=== PATIENT | female | born 1955 | race Caucasian/White ===

== ENCOUNTER 2019-11-29 18:41 | Emergency (ER) | payer MEDICAID, MEDICARE, OTHER, SELFPAY ==
[~2019-11-29] VITALS: Ht 167.6 cm; Wt 63.6 kg
[~2019-11-29 18:41] MED LIST: LEVO125T8 PO; METR-159 PO; OXYC15TA PO; OXYC30TA PO; POLY17PO10 PO; TETR-58 PO; VALA-7 PO
[2019-11-29 18:55] VITALS: BP 153/85
== END 2019-11-29 19:41 | disposition home or self-care (01) ==
LOC: ER 18:42
DX: J06.9 Acute upper respiratory infection, unspecified (principal); Z20.828 Contact with and (suspected) exposure to other viral communicable diseases; G89.29 Other chronic pain; Z86.14 Personal history of Methicillin resistant Staphylococcus aureus infection; Z98.890 Other specified postprocedural states; Z88.8 Allergy status to other drugs, medicaments and biological substances; Z79.2 Long term (current) use of antibiotics; Z79.899 Other long term (current) drug therapy
CPT/HCPCS: 36415; 71045; 87635; 99283

== ENCOUNTER 2023-01-22 12:46 | Outpatient (CLI) | payer MEDICARE, MEDICAID ==
[~2023-01-22 12:46] MED LIST changes: +ATOR40TA72 PO; +FAMO40TA7 PO; +FURO40TA4 PO; +HYDR25TA4 PO; +IRON; -LEVO125T8 PO; +LEVO175T7 PO; -METR-159 PO; -OXYC15TA PO; -OXYC30TA PO; +PANT40TA54 PO; -POLY17PO10 PO; +POTA-366 PO; -TETR-58 PO; -VALA-7 PO
== END 2023-01-22 23:59 | disposition home or self-care (01) ==
LOC: RAD 12:46
PROVIDERS: ATTEND Surgery
DX: K44.9 Diaphragmatic hernia without obstruction or gangrene (principal)
CPT/HCPCS: 74220

== ENCOUNTER 2023-11-11 11:43 | Outpatient (CLI) | payer MEDICARE, MEDICAID ==
[~2023-11-11 11:43] MED LIST changes: +ALBU18HF2 INH; -FAMO40TA7 PO; +HYDR-3972 PO; -HYDR25TA4 PO; +HYDR25TA5 PO; -IRON
== END 2023-11-11 23:59 | disposition home or self-care (01) ==
LOC: MRI 11:43
PROVIDERS: ATTEND Anesthesiology Pain Medicine
DX: M51.24 Other intervertebral disc displacement, thoracic region (principal); M43.8X6 Other specified deforming dorsopathies, lumbar region; M40.294 Other kyphosis, thoracic region; M47.816 Spondylosis without myelopathy or radiculopathy, lumbar region; M48.061 Spinal stenosis, lumbar region without neurogenic claudication; G95.20 Unspecified cord compression; M75.42 Impingement syndrome of left shoulder; M45.9 Ankylosing spondylitis of unspecified sites in spine; G89.4 Chronic pain syndrome; M46.96 Unspecified inflammatory spondylopathy, lumbar region; S92.812S Other fracture of left foot, sequela; X58.XXXS Exposure to other specified factors, sequela; M54.2 Cervicalgia
CPT/HCPCS: 72141; 72146; 72148

== ENCOUNTER 2024-04-17 11:24 | Inpatient (IN) | payer MEDICARE, OTHER ==
[~2024-04-17] VITALS: Ht 170.2 cm; Wt 70.4 kg
[2024-04-17] MEDS: azithromycin 250mg tablet PO ONE (12:52)
[2024-04-17] MEDS: CefTRIAXone/D5W-Rocephin 1gm 50 ML IV ONE (12:52)
[2024-04-17 12:57] LABS: BASOPHILS % (AUTO) 0.2 % (0-1); EOSINOPHILS # (AUTO) 0.7 X10'3 (0-0.9); EOSINOPHILS % (AUTO) 5.3 % (0-6); HEMATOCRIT 38.6 % (35.0-45.0); HEMOGLOBIN 12.3 g/dl (12.0-16.0); LYMPHOCYTES # (AUTO) 1.1 X10'3 (1.1-4.8); MEAN CORPUSCULAR HEMOGLOBIN 27.1 PG (27.0-31.0); MEAN CORPUSCULAR HGB CONC 31.9 g/dL (33.0-36.5); MEAN PLATELET VOLUME 8.3 FL (7.4-10.4); MONOCYTES # (AUTO) 1.1 X10'3 (0-0.9); NEUTROPHILS # (AUTO) 9.7 X10'3 (1.8-7.7); NEUTROPHILS % (AUTO) 76.5 % (42-75); PLATELET COUNT 376 X10'3 (140-440); RED BLOOD COUNT 4.55 X10'6 (4.20-5.60); RED CELL DISTRIBUTION WIDTH 15.6 % (11.5-14.5); WHITE BLOOD COUNT 12.7 X10'3 (4.5-11.0)
[2024-04-17 13:48] LABS: ALBUMIN 2.5 G/DL (3.4-5.0); ANION GAP 8 (8-16); BLOOD UREA NITROGEN 11 MG/DL (7-18); CALCIUM 8.5 MG/DL (8.5-10.1); CHLORIDE 102 MMOL/L (99-107); CREATININE 0.58 MG/DL (0.40-0.90); GLUCOSE 102 MG/DL (70-104); POTASSIUM 3.3 MMOL/L (3.5-5.1); SODIUM 137 MMOL/L (135-145); eCRCL 92 ML/MIN; eGFR > 90 ML/MIN
[2024-04-17] MEDS: normal saline 1000ml 1,000 ML IV ONE (14:19)
[2024-04-17] MEDS ORDERED: ondansetron/PF 4mg/2ml inj IV PRN (14:45)
[2024-04-17] MEDS ORDERED: mag hydrox/Alum hydrox/simeth 30ml oral suspension PO PRN (14:45)
[2024-04-17] MEDS ORDERED: acetaminophen 325mg tablet PO PRN (14:45)
[2024-04-17] MEDS ORDERED: potassium Cl 40MEQ/1/2NS 520ml 520 ML IV PRN (14:45)
[2024-04-17] MEDS ORDERED: magnesium Cl slow-release 64mg tablet PO PRN (14:45)
[2024-04-17] MEDS ORDERED: magnesium sulf-water 2g/50mL 50 ML IV PRN (14:45)
[2024-04-17] MEDS ORDERED: magnesium hydroxide 30ml (MOM) UD suspension PO PRN (14:45)
[2024-04-17] MEDS ORDERED: docusate sod 100mg capsule PO PRN (14:45)
[2024-04-17] MEDS ORDERED: magnesium sulf-water 4G/100mL 100 ML IV PRN (14:45)
[2024-04-17] MEDS ORDERED: potassium Cl 20 mEq SR tablet PO PRN (14:45)
[2024-04-17 15:42] LABS: BILIRUBIN,URINE SMALL (Neg); CLARITY,URINE SLIGHTLY CLOUDY (Clear); COLOR,URINE YELLOW (Yellow); GLUCOSE, URINE NEGATIVE (Neg); KETONES,URINE NEGATIVE (Neg); LEUKOCYTE ESTERASE ,URINE TRACE (Neg); NITRITES, URINE NEGATIVE (Neg); OCCULT BLOOD,URINE TRACE-INTACT (Neg); PROTEIN,URINE 30 mg/dl (Neg)
[2024-04-17 15:47] LABS: UA COLLECTION TYPE VOIDED
[2024-04-17 15:48] LABS: MUCUS STRANDS FEW /LPF (Neg); SQUAMOUS EPITHELIAL CELL,UR MODERATE /LPF (FEW)
[2024-04-17 15:49] LABS: AMORPHOUS URATES 1+; BACTERIA,URINE 1+ /HPF (Neg)
[2024-04-17] MEDS: normal saline 1000ml 1,000 ML IV SCH (17:00)
[2024-04-17 17:38] VITALS: BP 139/75; PULSE 75; RESP 16; TEMP 98.2; O2SAT 98
[2024-04-17 17:42] LABS: PRO BRAIN NATRIURETIC PEPTIDE 177 PG/ML (0-125)
[2024-04-17] MEDS: potassium Cl 20 mEq SR tablet PO PRN (18:05)
[2024-04-17] MEDS: K and/or MAG REPLACEMENT MC SCH (18:05)
[2024-04-17] MEDS: morphine 2 MG/ML inj. syringe IV PRN (18:06)
[2024-04-17] MEDS ORDERED: iohexol 300mg/ml 100ml inj. ONE (18:45)
[2024-04-17 20:10] VITALS: RESP 18
[2024-04-17] MEDS: predniSONE 20 mg tablet PO SCH (20:16)
[2024-04-17] MEDS: HYDROchlorothiazide 25mg tablet PO SCH (20:16)
[2024-04-17] MEDS: atorvastatin 20mg tablet PO SCH (20:16)
[2024-04-17 21:30] VITALS: PULSE 72; RESP 16; O2SAT 93
[2024-04-17 22:00] VITALS: BP 124/64; PULSE 72; RESP 13; TEMP 98.1; O2SAT 93
[2024-04-18] VITALS (10 sets, daily range): BP systolic 112–135; BP diastolic 56–70; PULSE 61–83; RESP 14–20; TEMP 96.4–98.1; O2SAT 90–96
[2024-04-18 06:04] LABS: BASOPHILS % (AUTO) 0.2 % (0-1); EOSINOPHILS % (AUTO) 0.3 % (0-6); HEMATOCRIT 38.8 % (35.0-45.0); HEMOGLOBIN 12.2 g/dl (12.0-16.0); LYMPHOCYTES # (AUTO) 0.8 X10'3 (1.1-4.8); LYMPHOCYTES % (AUTO) 8.3 % (21-51); MEAN CORPUSCULAR HEMOGLOBIN 26.6 PG (27.0-31.0); MEAN CORPUSCULAR HGB CONC 31.4 g/dL (33.0-36.5); MEAN CORPUSCULAR VOLUME 84.9 FL (78-98); MEAN PLATELET VOLUME 7.8 FL (7.4-10.4); MONOCYTES # (AUTO) 0.3 X10'3 (0-0.9); MONOCYTES % (AUTO) 2.9 % (2-12); NEUTROPHILS # (AUTO) 8.4 X10'3 (1.8-7.7); NEUTROPHILS % (AUTO) 88.3 % (42-75); PLATELET COUNT 362 X10'3 (140-440); RED BLOOD COUNT 4.56 X10'6 (4.20-5.60); RED CELL DISTRIBUTION WIDTH 15.7 % (11.5-14.5); WHITE BLOOD COUNT 9.5 X10'3 (4.5-11.0)
[2024-04-18 06:32] LABS: ALANINE AMINOTRANSFERASE 77 U/L (12-78); ALBUMIN 2.5 G/DL (3.4-5.0); ALBUMIN/GLOBULIN RATIO 0.6 (1.1-1.5); ALKALINE PHOSPHATASE 172 IU/L (46-116); ANION GAP 8 (8-16); ASPARTATE AMINO TRANSFERASE 41 U/L (10-37); BILIRUBIN,TOTAL 0.3 MG/DL (0.1-1.0); BLOOD UREA NITROGEN 7 MG/DL (7-18); BUN/CREATININE RATIO 10.9 (10.0-20.0); CALCIUM 8.8 MG/DL (8.5-10.1); CHLORIDE 103 MMOL/L (99-107); CHOL/HDL RATIO 3.4 (0.00-4.99); CHOLESTEROL 196 MG/DL (0-200); CREATININE 0.64 MG/DL (0.40-0.90); GLUCOSE 134 MG/DL (70-104); HDL CHOLESTEROL 57 MG/DL (35-60); LDL CHOLESTEROL 105 MG/DL (50-100); POTASSIUM 4.1 MMOL/L (3.5-5.1); SODIUM 140 MMOL/L (135-145); THYROID STIMULATING HORMONE 0.18 ulU/ml (0.34-4.50); TOTAL CARBON DIOXIDE 28.6 MMOL/L (24-32); TOTAL PROTEIN 6.6 G/DL (6.4-8.2); TRIGLYCERIDES 69 MG/DL (20-135); eCRCL 83 ML/MIN; eGFR > 90 ML/MIN
[2024-04-18] MEDS: azithromycin/NS 500mg/250ml 250 ML IV SCH (07:36)
[2024-04-18] MEDS: pantoprazole 40mg Tablet.DR PO SCH (07:36)
[2024-04-18] MEDS: CefTRIAXone/D5W-Rocephin 1gm 50 ML IV SCH (07:36)
[2024-04-18] MEDS: levoTHYROXINE 175mcg tablet PO SCH (07:37)
[2024-04-18] MEDS: enoxaparin 40mg/0.4ml syringe SUBCUT SCH (07:37)
[2024-04-18] MEDS: guaiFENesin ER 600mg tablet PO SCH (08:00)
[2024-04-18] MEDS: ipratropium/albuterol 3ml nebule NEB PRN (10:24)
[2024-04-18] MEDS ORDERED: glucagon, human recombinant 1mg kit SUBCUT PRN (12:40)
[2024-04-18] MEDS ORDERED: dextrose 50%-water 50ml dispensing syringe IV PRN ×2 (12:40)
[2024-04-18] MEDS: morphine 2 MG/ML inj. syringe IV PRN (12:40)
[2024-04-18] MEDS ORDERED: DEXTROSE 15 GM of carb/4 tabs (each vial/BOTTLE has 4 tablets) PO PRN (12:40)
[2024-04-18] MEDS: ipratropium/albuterol 3ml nebule NEB SCH (14:53)
[2024-04-18] MEDS: vancomycin/NS 1 GM ADD-VANTAGE 250 ML IV SCH (16:50)
[2024-04-18] MEDS: piperacillin/tazo 3.375gm/50ml 50 ML IV SCH (17:10)
[2024-04-18] MEDS: INSULIN LISPRO 100 UNIT/ML INSULN.PEN MULTI-DOSE SQ SCH (19:23)
[2024-04-19] VITALS (9 sets, daily range): BP systolic 125–141; BP diastolic 65–72; PULSE 59–84; RESP 14–20; TEMP 97.5–98; O2SAT 92–99
[2024-04-19 04:40] LABS: BASOPHILS % (AUTO) 0.3 % (0-1); EOSINOPHILS # (AUTO) 0.5 X10'3 (0-0.9); EOSINOPHILS % (AUTO) 3.8 % (0-6); HEMATOCRIT 33.4 % (35.0-45.0); HEMOGLOBIN 10.6 g/dl (12.0-16.0); LYMPHOCYTES % (AUTO) 15.4 % (21-51); MEAN CORPUSCULAR HEMOGLOBIN 26.6 PG (27.0-31.0); MEAN CORPUSCULAR HGB CONC 31.8 g/dL (33.0-36.5); MEAN CORPUSCULAR VOLUME 83.7 FL (78-98); MEAN PLATELET VOLUME 7.2 FL (7.4-10.4); MONOCYTES % (AUTO) 7.9 % (2-12); NEUTROPHILS # (AUTO) 9.5 X10'3 (1.8-7.7); NEUTROPHILS % (AUTO) 72.6 % (42-75); PLATELET COUNT 396 X10'3 (140-440); RED BLOOD COUNT 3.99 X10'6 (4.20-5.60); RED CELL DISTRIBUTION WIDTH 15.2 % (11.5-14.5); WHITE BLOOD COUNT 13.1 X10'3 (4.5-11.0)
[2024-04-19 04:52] LABS: ALANINE AMINOTRANSFERASE 57 U/L (12-78); ALBUMIN 2.2 G/DL (3.4-5.0); ALBUMIN/GLOBULIN RATIO 0.5 (1.1-1.5); ALKALINE PHOSPHATASE 133 IU/L (46-116); ANION GAP 6 (8-16); ASPARTATE AMINO TRANSFERASE 20 U/L (10-37); BILIRUBIN,TOTAL 0.2 MG/DL (0.1-1.0); BLOOD UREA NITROGEN 9 MG/DL (7-18); BUN/CREATININE RATIO 14.1 (10.0-20.0); CALCIUM 8.9 MG/DL (8.5-10.1); CHLORIDE 104 MMOL/L (99-107); CREATININE 0.64 MG/DL (0.40-0.90); GLUCOSE 93 MG/DL (70-104); POTASSIUM 3.2 MMOL/L (3.5-5.1); SODIUM 143 MMOL/L (135-145); TOTAL CARBON DIOXIDE 32.7 MMOL/L (24-32); TOTAL PROTEIN 6.5 G/DL (6.4-8.2); eCRCL 83 ML/MIN; eGFR > 90 ML/MIN
[2024-04-19] MEDS: levoTHYROXINE 125mcg tablet PO SCH (07:39)
[2024-04-19] MEDS: furosemide 40mg tablet PO SCH (08:00)
[2024-04-19] MEDS: acetaminophen 325mg tablet PO PRN (08:17)
[2024-04-19] MEDS: CefTRIAXone/D5W-Rocephin 1gm 50 ML IV SCH (11:56)
[2024-04-19] MEDS: azithromycin/NS 500mg/250ml 250 ML IV ONE (11:56)
[2024-04-19] MEDS: guaiFENesin 200mg/20mg codeine phos 10ml UD oral syrup PO PRN (17:10)
[2024-04-19] MEDS: lactose-reduced food (Ensure Enlive) - 237ml bottle PO SCH (19:08)
[2024-04-20] MEDS ORDERED: VANCOMYCIN LEVEL IV ONE (04:30)
[2024-04-20 04:51] LABS: BASOPHILS # (AUTO) 0.1 X10'3 (0-0.2); BASOPHILS % (AUTO) 0.5 % (0-1); EOSINOPHILS # (AUTO) 0.6 X10'3 (0-0.9); EOSINOPHILS % (AUTO) 5.5 % (0-6); HEMATOCRIT 37.5 % (35.0-45.0); HEMOGLOBIN 11.9 g/dl (12.0-16.0); LYMPHOCYTES # (AUTO) 2.2 X10'3 (1.1-4.8); LYMPHOCYTES % (AUTO) 19.4 % (21-51); MEAN CORPUSCULAR HEMOGLOBIN 26.5 PG (27.0-31.0); MEAN CORPUSCULAR HGB CONC 31.7 g/dL (33.0-36.5); MEAN CORPUSCULAR VOLUME 83.5 FL (78-98); MEAN PLATELET VOLUME 7.1 FL (7.4-10.4); MONOCYTES % (AUTO) 8.9 % (2-12); NEUTROPHILS # (AUTO) 7.4 X10'3 (1.8-7.7); NEUTROPHILS % (AUTO) 65.7 % (42-75); PLATELET COUNT 479 X10'3 (140-440); RED BLOOD COUNT 4.48 X10'6 (4.20-5.60); RED CELL DISTRIBUTION WIDTH 15.3 % (11.5-14.5); WHITE BLOOD COUNT 11.2 X10'3 (4.5-11.0)
[2024-04-20 05:04] LABS: ALANINE AMINOTRANSFERASE 53 U/L (12-78); ALBUMIN 2.6 G/DL (3.4-5.0); ALBUMIN/GLOBULIN RATIO 0.7 (1.1-1.5); ALKALINE PHOSPHATASE 146 IU/L (46-116); ANION GAP 5 (8-16); ASPARTATE AMINO TRANSFERASE 17 U/L (10-37); BILIRUBIN,TOTAL 0.2 MG/DL (0.1-1.0); BLOOD UREA NITROGEN 12 MG/DL (7-18); BUN/CREATININE RATIO 18.5 (10.0-20.0); CALCIUM 9.5 MG/DL (8.5-10.1); CHLORIDE 102 MMOL/L (99-107); CREATININE 0.65 MG/DL (0.40-0.90); GLUCOSE 85 MG/DL (70-104); MAGNESIUM 1.9 MG/DL (1.5-2.4); POTASSIUM 3.8 MMOL/L (3.5-5.1); SODIUM 139 MMOL/L (135-145); TOTAL CARBON DIOXIDE 31.8 MMOL/L (24-32); TOTAL PROTEIN 6.5 G/DL (6.4-8.2); VANCOMYCIN,TROUGH 7.4 ug/mL (10.0-20.0); eCRCL 82 ML/MIN; eGFR > 90 ML/MIN
[2024-04-20] MEDS: CefTRIAXone/D5W-Rocephin 1gm 50 ML IV SCH (05:10)
[2024-04-20 06:00] VITALS: BP 131/62; PULSE 71; RESP 14; TEMP 97.5; O2SAT 94
[2024-04-20] MEDS ORDERED: CEFD300C3 PO (07:16)
[2024-04-20] MEDS ORDERED: LEVO125T8 PO (07:16)
[2024-04-20] MEDS ORDERED: LACT1CAP26 PO (07:17)
[2024-04-20] MEDS: DEXTROSE 15 GM of carb/4 tabs (each vial/BOTTLE has 4 tablets) PO PRN (07:25)
[2024-04-20] MEDS ORDERED: GUAI400T92 PO (07:46)
[2024-04-20 08:17] VITALS: PULSE 73; RESP 20; O2SAT 96
[2024-04-20 08:22] VITALS: PULSE 73; RESP 16
[2024-04-20 10:00] VITALS: BP 140/73; PULSE 74; RESP 18; TEMP 97.7; O2SAT 96
[2024-04-20] MEDS ORDERED: LIDO1ADH78 TOP (11:49)
[2024-04-20] MEDS ORDERED: TIOT18CA3 INH (12:37)
[2024-04-20 14:00] VITALS: PULSE 88; RESP 20; O2SAT 91
[2024-04-20 14:06] VITALS: PULSE 66; RESP 20
== END 2024-04-20 15:30 | disposition home health service (06) | DRG 871 ==
LOC: ER 11:25 → ED HOLD 14:33 → EDBEDREQ 15:44 → SUR 3N 16:17
PROVIDERS: ADMIT Family Medicine; ATTEND Family Medicine
DX: A41.9 Sepsis, unspecified organism (principal); J18.9 Pneumonia, unspecified organism; J96.01 Acute respiratory failure with hypoxia; J44.0 Chronic obstructive pulmonary disease with (acute) lower respiratory infection; I50.20 Unspecified systolic (congestive) heart failure; E11.9 Type 2 diabetes mellitus without complications; E03.9 Hypothyroidism, unspecified; E88.09 Other disorders of plasma-protein metabolism, not elsewhere classified; G89.29 Other chronic pain; M54.9 Dorsalgia, unspecified; E87.6 Hypokalemia; Z79.899 Other long term (current) drug therapy; Z86.73 Personal history of transient ischemic attack (TIA), and cerebral infarction without residual deficits; Z88.8 Allergy status to other drugs, medicaments and biological substances; Z88.2 Allergy status to sulfonamides; Z90.710 Acquired absence of both cervix and uterus
CPT/HCPCS: 36415; 71045; 71250; 80048; 80053; 80061; 80202; 81001; 82948; 83036; 83605; 83735; 83880; 84132; 84145; 84443; 84484; 85025; 87040; 87070; 87081; 87088; 93005; 94640; 94760; 97161; 97530; 99285; G0378; J0456; J0696; J1650; J1815; J2270; J2543; J3370; J7030; J7040; J7512; Q9967

== ENCOUNTER 2024-04-26 17:05 | Emergency (ER) | payer MEDICARE, OTHER ==
[~2024-04-26] VITALS: Ht 167.6 cm; Wt 65.9 kg
[~2024-04-26 17:05] MED LIST changes: +CEFD300C3 PO; +GUAI400T92 PO; -HYDR-3972 PO; +LACT1CAP26 PO; +LEVO125T8 PO; -LEVO175T7 PO; +LIDO1ADH78 TOP; +TIOT18CA3 INH
[2024-04-26 17:18] VITALS: BP 143/89
[2024-04-26 19:33] VITALS: PULSE 76; RESP 15; TEMP 98; O2SAT 97
== END 2024-04-26 19:12 | disposition home or self-care (01) ==
LOC: ER 17:06
DX: R58 Hemorrhage, not elsewhere classified (principal); I10 Essential (primary) hypertension; J44.9 Chronic obstructive pulmonary disease, unspecified; E11.9 Type 2 diabetes mellitus without complications; E03.9 Hypothyroidism, unspecified; Z88.8 Allergy status to other drugs, medicaments and biological substances; Z88.2 Allergy status to sulfonamides; Z79.899 Other long term (current) drug therapy; Z79.2 Long term (current) use of antibiotics
CPT/HCPCS: 99281